=== PATIENT | female | born 1955 | race Hispanic/Latino ===

== ENCOUNTER 2022-03-10 09:46 | Emergency (ER) | payer MEDICARE ==
[~2022-03-10] VITALS: Ht 152.4 cm; Wt 88.0 kg
[2022-03-10] MEDS ORDERED: KETOROLAC 60 MG VIAL (30MG/ML) IM ONE (10:30)
[2022-03-10] MEDS ORDERED: MELO10CA3 PO (12:18)
[2022-03-10] MEDS ORDERED: HYDROCODONE/ACETAMINOPHEN 5/325 MG TAB PO ONE (12:30)
[2022-03-10 13:00] VITALS: BP 133/80
== END 2022-03-10 13:20 | disposition home or self-care (01) ==
LOC: EDH 09:46
DX: M17.0 Bilateral primary osteoarthritis of knee (principal); M25.561 Pain in right knee; M25.562 Pain in left knee; J45.909 Unspecified asthma, uncomplicated; E78.00 Pure hypercholesterolemia, unspecified; I10 Essential (primary) hypertension; Z98.890 Other specified postprocedural states
CPT/HCPCS: 73560; 96372; 99283; J1885